=== PATIENT | female | born 1960 | race Two or more races ===

== ENCOUNTER 2023-02-20 09:16 | Emergency (ER) | payer OTHER ==
[~2023-02-20] VITALS: Ht 152.4 cm; Wt 54.4 kg
[2023-02-20] MEDS ORDERED: LIPITOR20 MG PO (09:32)
[2023-02-20] MEDS ORDERED: VITAMIN D325 GM PO (09:33)
[2023-02-20] MEDS ORDERED: FORTEO2.4 ML SUBCUTANEO (09:33)
[2023-02-20] MEDS ORDERED: CLEOCIN HCL300 MG PO (11:05)
[2023-02-20] MEDS ORDERED: ADVIL DUAL ACT1 EACH PO (11:05)
== END 2023-02-20 11:09 | disposition home or self-care (01) ==
LOC: ER 09:16
DX: L03.114 Cellulitis of left upper limb (principal); R60.0 Localized edema